=== PATIENT | female | born 1925 | race Native Hawaiian/Other Pacific Islander ===

== ENCOUNTER 2017-02-05 10:45 | Day surgery (SDC) | payer MEDICARE, MEDICAID ==
[2017-01-26 13:37] VITALS: BMI 25.9
[2017-02-05] MEDS ORDERED: Propofol 10 mg/ml Inj (20 ML) ONE (12:48)
[2017-02-05] MEDS ORDERED: Midazolam 2 MG/2 ML VIAL ONE (12:48)
[2017-02-05] MEDS ORDERED: Esmolol 100 mg/10ml Inj IV ONE (13:15)
[2017-02-05] MEDS ORDERED: Phenylephrine 10 mg/ml Inj ONE (13:15)
[2017-02-05] MEDS ORDERED: Lactated Ringer's 1,000 ML IV SCH (13:30)
[2017-02-05 14:00] VITALS: TEMP 97.5
[2017-02-05 15:57] VITALS: BP 130/93; PULSE 62; RESP 18; O2SAT 97
== END 2017-02-05 16:05 | disposition home or self-care (01) ==
LOC: ENDO 10:45
PROVIDERS: ATTEND Internal Medicine
DX: C20 Malignant neoplasm of rectum (principal); K57.30 Diverticulosis of large intestine without perforation or abscess without bleeding; J44.9 Chronic obstructive pulmonary disease, unspecified; E78.5 Hyperlipidemia, unspecified
CPT/HCPCS: 45331; 45341; 88305; J2250; J2370; J2704; J3010; J7040; J7120